=== PATIENT | female | born 1990 | race Caucasian/White ===

== ENCOUNTER 2016-12-14 21:46 | Outpatient (CLI) | payer OTHER | END 2016-12-14 23:35 | disposition home or self-care (01) | LOC: GENOP 21:46 | DX: O26.893 Other specified pregnancy related conditions, third trimester (principal); O26.853 Spotting complicating pregnancy, third trimester; R10.9 Unspecified abdominal pain; Z3A.38 38 weeks gestation of pregnancy | CPT/HCPCS: 81001; G0463 ==

== ENCOUNTER 2016-12-18 18:51 | Outpatient (CLI) | payer OTHER | END 2016-12-18 20:07 | disposition home or self-care (01) | LOC: GENOP 18:51 | DX: O26.853 Spotting complicating pregnancy, third trimester (principal); O26.893 Other specified pregnancy related conditions, third trimester; R10.9 Unspecified abdominal pain; Z3A.38 38 weeks gestation of pregnancy | CPT/HCPCS: G0463 ==

== ENCOUNTER 2016-12-27 16:09 | Inpatient (IN) | payer OTHER ==
[2016-12-27 16:44] LABS: HEMOGLOBIN 14.1 gm/dl (12.3-15.3); RED BLOOD COUNT 4.46 M/UL (4.00-5.10); WHITE BLOOD COUNT 9.6 K/UL (4.5-11.0)
[2016-12-29 03:37] LABS: HEMOGLOBIN 9.8 gm/dl (12.3-15.3)
== END 2016-12-30 14:48 | disposition home or self-care (01) | DRG 765 ==
LOC: GENOP 16:09 → OB 16:24
PROVIDERS: ADMIT Obstetrics & Gynecology
PROC: 10D00Z1 Extraction of Products of Conception, Low, Open Approach (ICD-10-PCS; principal; 2016-12-28 09:40)
DX: O34.211 Maternal care for low transverse scar from previous cesarean delivery (principal); O98.52 Other viral diseases complicating childbirth; O13.4 Gestational [pregnancy-induced] hypertension without significant proteinuria, complicating childbirth; B00.9 Herpesviral infection, unspecified; O99.334 Smoking (tobacco) complicating childbirth; F17.210 Nicotine dependence, cigarettes, uncomplicated; O99.214 Obesity complicating childbirth; Z3A.38 38 weeks gestation of pregnancy; Z37.0 Single live birth; Z28.21 Immunization not carried out because of patient refusal
CPT/HCPCS: 36415; 80076; 81001; 82800; 85014; 85018; 85025; C9113; J0690; J2274; J2300; J2405; J2590; J2765; J3010; J7120

== ENCOUNTER 2021-08-04 05:22 | Inpatient (IN) | payer OTHER ==
[~2021-08-04] VITALS: Ht 154.9 cm; Wt 75.7 kg
[~2021-08-04 05:22] MED LIST: FLOMAX0.4 MG PO; KEFLEX CAP 500500 MG PO; PERCOCET 5/325 T1 EA PO; TORADOL 10 MG T10 MG PO
[2021-08-04 07:27] LABS: HEMOGLOBIN 11.7 gm/dl (12.3-15.3); RED BLOOD COUNT 3.65 M/UL (4.00-5.10); WHITE BLOOD COUNT 8.1 K/UL (4.5-11.0)
[2021-08-04] MEDS ORDERED: HYDROCODON-ACE1 EAC6 PO (09:26)
[2021-08-04] MEDS ORDERED: IBUPROFEN600 MG PO (09:26)
[2021-08-04] MEDS ORDERED: COLACE 100MG C100 MG PO (09:26)
[2021-08-05 09:13] LABS: HEMOGLOBIN 6.7 gm/dl (12.3-15.3)
[2021-08-05 16:12] LABS: RED BLOOD COUNT 1.85 M/UL (4.00-5.10)
[2021-08-05 16:15] LABS: HEMOGLOBIN 6.2 gm/dl (12.3-15.3)
[2021-08-06 07:07] LABS: WHITE BLOOD COUNT 7.1 K/UL (4.5-11.0)
[2021-08-06 07:08] LABS: RED BLOOD COUNT 1.56 M/UL (4.00-5.10)
[2021-08-06 07:10] LABS: HEMOGLOBIN 5.2 gm/dl (12.3-15.3)
[2021-08-06 16:30] LABS: HEMOGLOBIN 7.8 gm/dl (12.3-15.3)
[2021-08-07 07:49] LABS: HEMOGLOBIN 6.9 gm/dl (12.3-15.3)
[2021-08-09 11:09] LABS: AMPHETAMINES, URINE Negative ng/mL (Cutoff=1000); BARBITURATE Negative ng/mL (Cutoff=200); BENZODIAZEPINES Negative ng/mL (Cutoff=200); CANNABINOIDS Negative ng/mL (Cutoff=20); COCAINE (METABOLITE) Negative ng/mL (Cutoff=300); CODEINE Negative (Cutoff=300); CREATININE 62.8 mg/dL (20.0-300.0); HYDROCODONE Positive (.); HYDROCODONE CONFIRM 1321 ng/mL (Cutoff=300); HYDROMORPHONE Positive (.); HYDROMORPHONE CONFIRM 576 ng/mL (Cutoff=300); MEPERIDINE Negative ng/mL (Cutoff=200); METHADONE Negative ng/mL (Cutoff=300); MORPHINE Negative (Cutoff=300); OPIATES Positive ng/mL (Cutoff=300); OPIATES See Final Results ng/mL (Cutoff=300); PHENCYCLIDINE Negative ng/mL (Cutoff=25); PROPOXYPHENE Negative ng/mL (Cutoff=300)
== END 2021-08-07 22:27 | disposition home or self-care (01) | DRG 786 ==
LOC: OB 05:22
PROVIDERS: Obstetrics & Gynecology; ADMIT Obstetrics & Gynecology
PROC: 4A1HXCZ Monitoring of Products of Conception, Cardiac Rate, External Approach (ICD-10-PCS; 2021-08-04)
PROC: 10D00Z1 Extraction of Products of Conception, Low, Open Approach (ICD-10-PCS; principal; 2021-08-04 07:30)
PROC: 30233N1 Transfusion of Nonautologous Red Blood Cells into Peripheral Vein, Percutaneous Approach (ICD-10-PCS; 2021-08-06)
DX: O34.211 Maternal care for low transverse scar from previous cesarean delivery (principal); U07.1 COVID-19; O98.52 Other viral diseases complicating childbirth; D62 Acute posthemorrhagic anemia; Z3A.39 39 weeks gestation of pregnancy; Z37.0 Single live birth; O99.62 Diseases of the digestive system complicating childbirth; K66.0 Peritoneal adhesions (postprocedural) (postinfection); O99.334 Smoking (tobacco) complicating childbirth; F17.210 Nicotine dependence, cigarettes, uncomplicated; Z90.49 Acquired absence of other specified parts of digestive tract; Z83.3 Family history of diabetes mellitus; O90.81 Anemia of the puerperium; O32.1XX0 Maternal care for breech presentation, not applicable or unspecified
CPT/HCPCS: 36415; 36430; 80307; 81001; 82800; 85014; 85018; 85025; 86850; 86900; 86901; 86920; C9113; J0690; J1650; J1756; J1885; J2274; J2370; J2405; J2590; J3010; J7030; J7120; P9016; U0002

== ENCOUNTER → 2022-02-16 | Outpatient (CLI) | payer OTHER ==
[~2022-02-16] MED LIST changes: +COLACE 100MG C100 MG PO; +HYDROCODON-ACE1 EAC6 PO; +IBUPROFEN600 MG PO
== END ==
LOC: LAB 16:15
DX: Z79.899 Other long term (current) drug therapy (principal)
CPT/HCPCS: 36415; 80076